=== PATIENT | female | born 1980 | race Caucasian/White ===

== ENCOUNTER 2019-01-19 00:04 | Emergency (ER) | payer OTHER ==
[~2019-01-19] VITALS: Ht 162.6 cm; Wt 65.0 kg
[~2019-01-19 00:04] MED LIST: /ADVA50050; /CELE20CA; /ESCI20TA; /LAMO10TA; /LAMO20TA; /LAMO20TA PO; ADDE10CA3; ADDE10TA; AMBI10TA; BUSP30TA PO; CETI10TA PO; DEPO-PROVERA IM; FLOV50AE; IBUP400T; IMIT4KIT2 SC; KLON1TAB; NAPR500T; NEXI20CA; NICO21DI4; PERC5TAB8; PERC7.5T12 PO; PRIL20CA; PRIL40CA PO; SOMA350T; TOPA50TA PO; TRAM50TA2; TRAZ150T PO; TRAZ50TA; VICO5TAB; WELL150T PO; ZYRT10TA6; [UNRECOGNIZED DRUG - OTHER]
[2019-01-19] MEDS ORDERED: NS 1,000 ML IV ONE (00:30)
[2019-01-19 00:38] LABS: BASO % 0.3 % (0.0-1.0); EOS # 0.1 10^3/uL (0.0-0.50); EOS % 1.5 % (0.0-3.0); HEMOGLOBIN 14.9 g/dl (12.0-15.5); LYMPH # 1.9 10^3/uL (1.5-4.5); LYMPH % 21.5 % (24.0-44.0); MEAN CORPUSCULAR HEMOGLOBIN 28.9 pg (27.0-33.0); MEAN CORPUSCULAR HGB CONC 33.9 g/dl (32.0-36.5); MEAN CORPUSCULAR VOLUME 85.4 fl (80.0-96.0); MONO # 0.6 10^3/uL (0.0-0.8); MONO % 6.7 % (0.0-5.0); NEUTROPHILS # 6.1 10^3/uL (1.8-7.7); NEUTROPHILS % 69.8 % (36.0-66.0); PLATELET COUNT, AUTOMATED 304 10^3/uL (150-450); RED BLOOD COUNT 5.15 10^6/uL (4.00-5.40); WHITE BLOOD COUNT 8.8 10^3/uL (4.0-10.0)
[2019-01-19 01:13] LABS: BLOOD UREA NITROGEN 8 MG/DL (7-18); CALCIUM LEVEL 9.2 MG/DL (8.5-10.1); CARBON DIOXIDE LEVEL 28 MEQ/L (21-32); CHLORIDE LEVEL 101 MEQ/L (98-107); CREATININE FOR GFR 0.52 MG/DL (0.55-1.30); FREE T4 1.23 NG/DL (0.76-1.46); GLOMERULAR FILTRATION RATE > 60.0 (>60); GLUCOSE, FASTING 125 MG/DL (70-100); HCG, SERUM QUALITATIVE NEGATIVE (NEGATIVE); POTASSIUM SERUM 3.3 MEQ/L (3.5-5.1); SODIUM LEVEL 136 MEQ/L (136-145)
[2019-01-19] MEDS ORDERED: POTASSIUM CHLORIDE 10 MEQ SR TABLET PO ONE (01:30)
--- NOTE | 2019-01-19 02:22 | REP ---
Clinical: Syncope/near-syncopal episode . Comparison: 11/06/2008 . Findings: The mediastinum and cardiac silhouette are stable and within normal limits for portable technique. The lung esposito are clear without acute consolidation, effusion, or pneumothorax. Nipple shadow versus 7 mm nodular density in the lower right lung zone may warrant followup. Skeletal structures are intact. Impression: No acute cardiopulmonary process appreciated. Nipple shadow versus 7 mm nodular density in the lower right lung zone warrants followup chest x-ray (PA and lateral). Electronically Signed by Victorino Burgos MD 01/19/2019 02:13 A
[2019-01-19 03:02] VITALS: BP 106/58
--- NOTE | 2019-01-19 10:52 | ED PDOC ---
Post-Departure Follow-Up [facility] faxed formal report of cxr for fu Shirley Turner MD Jan 19, 2019 10:52
--- NOTE | 2019-01-19 21:21 | ECGEPIP ---
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
== END 2019-01-19 03:05 | disposition home or self-care (01) ==
LOC: M ED 00:04
DX: R55 Syncope and collapse (principal); E87.6 Hypokalemia; M79.7 Fibromyalgia; N80.9 Endometriosis, unspecified; F33.9 Major depressive disorder, recurrent, unspecified; F41.9 Anxiety disorder, unspecified; Z88.8 Allergy status to other drugs, medicaments and biological substances; F17.210 Nicotine dependence, cigarettes, uncomplicated

== ENCOUNTER 2019-02-02 22:37 | Emergency (ER) | payer OTHER ==
[~2019-02-02] VITALS: Ht 162.6 cm; Wt 68.2 kg
[~2019-02-02 22:37] MED LIST changes: -/ADVA50050; -/CELE20CA; -/ESCI20TA; -/LAMO10TA; -/LAMO20TA; -/LAMO20TA PO; +ADVA1AER2; +CELE1CAP4; +LAMI1TAB7; +LAMI1TAB9; +LAMI1TAB9 PO; +LEXA1TAB2
[2019-02-02] MEDS ORDERED: TRAZ-160 PO (22:41)
[2019-02-03] MEDS ORDERED: ALBUTEROL 90 MCG/ACT 8GM HFA INHALER INH ONE (00:15)
[2019-02-03] MEDS ORDERED: AUGMENTIN 875 MG TAB PO ONE (00:15)
[2019-02-03] MEDS ORDERED: AUGM875T28 PO (00:15)
[2019-02-03 00:24] VITALS: BP 110/65
== END 2019-02-03 00:25 | disposition home or self-care (01) ==
LOC: M ED 22:37
DX: J40 Bronchitis, not specified as acute or chronic (principal); K04.7 Periapical abscess without sinus; F17.210 Nicotine dependence, cigarettes, uncomplicated; Z79.899 Other long term (current) drug therapy; Z88.8 Allergy status to other drugs, medicaments and biological substances

== ENCOUNTER → 2020-04-16 | Outpatient (CLI) | payer OTHER ==
[~2020-04-16] MED LIST changes: +AUGM875T28 PO; +TRAZ-252 PO
--- NOTE | 2020-04-16 16:55 | REP ---
DIGITAL DIAGNOSTIC BILATERAL MAMMOGRAPHY WITH CAD, 3D TOMOGRAPHY, AND FOCUSED RIGHT BREAST SONOGRAPHY: HISTORY: Right breast mass. Palpable lump in the right upper outer quadrant times 10 days, palpated by the patient. Negative clinical breast exam. No comparison breast imaging. MAMMOGRAPHIC FINDINGS: Breast parenchyma is heterogeneously dense. The Volpara volumetric breast density category is: C. This may lower the sensitivity of mammography. A skin marker is affixed to the skin at the site of the palpable lump. Routine mammograms are augmented by magnified focal spot compression images. Breast parenchyma is homogeneous and symmetric. No mass lesion is visible mammographically. No spiculation architectural distortion is seen. No microcalcification or worrisome skin changes appreciated. No mammographic abnormality. SONOGRAPHIC FINDINGS: The area of the patient's palpable lump at 12-o'clock position is scanned. Heterogeneous fibroglandular background echotexture is seen sonographically. No cyst or mass is observed. No acoustic shadowing or architectural distortion is apparent. IMPRESSION:BIRADS 1: BI-RADS/ACR category 1 mammogram. Negative Mammogram. BI-RADS category 1 negative findings. Clinical follow-up is advised. This mammogram was interpreted with the aid of an FDA-approved computer-aided detection system. The patient states she had a clinical breast exam in April 2020 The patient letter being requested is M#2, dense This patient's estimated Tyrer-Cuzick lifetime risk assessment for breast cancer is 14.0%.
== END ==
LOC: M WHC 14:59
PROVIDERS: ATTEND Nurse Practitioner Family
DX: N63.10 Unspecified lump in the right breast, unspecified quadrant (principal)
CPT/HCPCS: 76642; 77066; G0279

== ENCOUNTER 2020-08-20 17:08 | Emergency (ER) | payer OTHER ==
[~2020-08-20] VITALS: Ht 162.6 cm; Wt 58.1 kg
[2020-08-20] MEDS ORDERED: PHENAZOPYRIDINE 100 MG TAB PO ONE (18:30)
[2020-08-20] MEDS ORDERED: CIPROFLOXACIN 500MG TABLET PO ONE (18:30)
[2020-08-20] MEDS ORDERED: CIPR-249 PO (20:03)
[2020-08-20] MEDS ORDERED: PYRI1TAB5 PO (20:03)
[2020-08-20 20:24] VITALS: BP 115/76
== END 2020-08-20 20:25 | disposition home or self-care (01) ==
LOC: M ED 17:08
DX: F19.10 Other psychoactive substance abuse, uncomplicated (principal); N39.0 Urinary tract infection, site not specified; F31.9 Bipolar disorder, unspecified; F41.1 Generalized anxiety disorder; J45.909 Unspecified asthma, uncomplicated; G43.909 Migraine, unspecified, not intractable, without status migrainosus; F17.200 Nicotine dependence, unspecified, uncomplicated; Z88.8 Allergy status to other drugs, medicaments and biological substances; Z79.899 Other long term (current) drug therapy

== ENCOUNTER → 2020-10-17 | Outpatient (CLI) | payer MEDICAID ==
[~2020-10-17] MED LIST changes: +CIPR-249 PO; +PYRI1TAB5 PO
== END ==
LOC: M OUTALCOH 09:47
PROVIDERS: ATTEND Psychiatry & Neurology Addiction Medicine
DX: F11.20 Opioid dependence, uncomplicated (principal)

== ENCOUNTER 2020-10-22 15:00 | Outpatient (RCR) | payer MEDICAID | END 2020-11-01 | LOC: M OUTALCOH 15:00 | PROVIDERS: ATTEND Psychiatry & Neurology Addiction Medicine | DX: F11.20 Opioid dependence, uncomplicated (principal); F13.20 Sedative, hypnotic or anxiolytic dependence, uncomplicated; F12.10 Cannabis abuse, uncomplicated; F17.200 Nicotine dependence, unspecified, uncomplicated ==

== ENCOUNTER 2021-05-04 20:19 | Emergency (ER) | payer MEDICAID ==
[~2021-05-04] VITALS: Ht 162.6 cm; Wt 54.7 kg
[2021-05-04] MEDS ORDERED: BUPR1FIL3 SL (20:30)
[2021-05-04 21:31] LABS: HEMATOCRIT 41.1 % (36.0-47.0); HEMOGLOBIN 13.5 g/dl (12.0-15.5); MEAN CORPUSCULAR HEMOGLOBIN 28.7 pg (27.0-33.0); MEAN CORPUSCULAR HGB CONC 32.8 g/dl (32.0-36.5); MEAN CORPUSCULAR VOLUME 87.4 fl (80.0-96.0); PLATELET COUNT, AUTOMATED 353 10^3/uL (150-450); WHITE BLOOD COUNT 9.3 10^3/uL (4.0-10.0)
[2021-05-04 21:51] LABS: AMPHETAMINES LEVEL URINE NEGATIVE (NEGATIVE); BARBITURATES URINE NEGATIVE (NEGATIVE); BENZODIAZEPINES URINE POSITIVE (NEGATIVE); CANNABINOIDS URINE POSITIVE (NEGATIVE); COCAINE METABOLITE URINE NEGATIVE (NEGATIVE); METHADONE URINE NEGATIVE (NEGATIVE); OPIATES URINE POSITIVE (NEGATIVE); PHENCYCLIDINE URINE NEGATIVE (NEGATIVE)
[2021-05-04 22:04] LABS: ACETAMINOPHEN LEVEL < 2.0 UG/ML (10.0-30.0); ALBUMIN 3.7 GM/DL (3.2-5.2); ALT/SGPT 17 U/L (12-78); BILIRUBIN,DIRECT 0.1 MG/DL (0.0-0.2); BILIRUBIN,TOTAL 0.3 MG/DL (0.2-1.0); BLOOD UREA NITROGEN 8 MG/DL (7-18); CARBON DIOXIDE LEVEL 26 MEQ/L (21-32); CHLORIDE LEVEL 105 MEQ/L (98-107); ETHYL ALCOHOL (ETHANOL) < 0.003 % (0.000-0.010); GLOMERULAR FILTRATION RATE > 60.0 (>60); GLUCOSE, FASTING 99 MG/DL (70-100); POTASSIUM SERUM 3.5 MEQ/L (3.5-5.1); SALICYLATE LEVEL 4.1 MG/DL (5.0-30.0); SODIUM LEVEL 139 MEQ/L (136-145); TOTAL PROTEIN 7.4 GM/DL (6.4-8.2)
[2021-05-04 22:12] LABS: HCG, SERUM QUALITATIVE NEGATIVE (NEGATIVE)
[2021-05-05] MEDS ORDERED: BUPR8SUB SL (10:18)
[2021-05-05] MEDS ORDERED: TRAZ-257 PO (10:18)
--- NOTE | 2021-05-05 18:13 | ECGEPIP ---
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
[2021-05-05] MEDS ORDERED: traZODone 100 MG TAB PO ONE (21:00)
[2021-05-06] MEDS ORDERED: NICOTINE 21MG/24HR 1 EA TRANSDERMAL TD ONE (07:10)
[2021-05-06] MEDS: BUPRENORPHINE HCL 8MG SUBINGUAL TABLET SL SCH ×2 (09:12→09:20)
[2021-05-06 11:51] VITALS: BP 127/89
== END 2021-05-06 11:51 | disposition home or self-care (01) ==
LOC: M ED 20:19
DX: F43.0 Acute stress reaction (principal); F19.10 Other psychoactive substance abuse, uncomplicated; Z91.5 Personal history of self-harm; F31.9 Bipolar disorder, unspecified; Z79.899 Other long term (current) drug therapy

== ENCOUNTER → 2021-05-14 | Outpatient (REF) ==
[~2021-05-14] MED LIST changes: +BUPR1FIL3 SL; +BUPR8SUB SL; +TRAZ-257 PO
[2021-05-14 18:08] LABS: RSV AMPLIFICATION NEGATIVE (NEGATIVE)
== END ==
LOC: M LAB 05-13 12:57